=== PATIENT | female | born 1980 | race Caucasian/White ===

== ENCOUNTER 2022-04-28 11:43 | Outpatient (REF) | payer OTHER, SELFPAY ==
--- NOTE | ~2022-04-28 | XR_ITS ---
EXAMINATION: XR CHEST CLINICAL INFORMATION: Cough. COMPARISON: None TECHNIQUE: 2 views of the chest were obtained. FINDINGS: The lungs are well expanded. No focal consolidation. No pleural effusion. Cardiac silhouette is within normal limits. XR/XR chest 2V IMPRESSION: No acute abnormality.
== END 2022-04-28 11:44 | disposition home or self-care (01) ==
LOC: HO.HMGCX 11:43
DX: R05.9 Cough, unspecified (principal)
CPT/HCPCS: 71046

== ENCOUNTER → 2023-07-31 12:08 | Outpatient (BNVA) | payer OTHER, SELFPAY | PROVIDERS: Visit Provider Physician Assistant Medical | DX: S83.8X2A Sprain of other specified parts of left knee, initial encounter (principal); W00.0XXA Fall on same level due to ice and snow, initial encounter | CPT/HCPCS: 73564; 99203 ==

== ENCOUNTER → 2023-08-14 10:31 | Outpatient (BNVA) | payer OTHER, SELFPAY | PROVIDERS: Visit Provider Physician Assistant Medical | DX: S83.8X2D Sprain of other specified parts of left knee, subsequent encounter (principal); W00.0XXD Fall on same level due to ice and snow, subsequent encounter | CPT/HCPCS: 99213 ==

== ENCOUNTER 2023-08-23 19:55 | Outpatient (REF) | payer OTHER, SELFPAY ==
--- NOTE | ~2023-08-23 | MR_ITS ---
EXAMINATION: MR KNEE WITHOUT CONTRAST, LEFT CLINICAL INFORMATION: Left knee pain and swelling following injury on 07/25/2023. Twisting injury. Surgery in 2008. COMPARISON: Left knee radiographs dated 07/31/2023. TECHNIQUE: MRI of the knee without contrast was performed using routine sequences on a high-field scanner. FINDINGS: MENISCI: Medial Meniscus: Intact Lateral Meniscus: Intact LIGAMENTS: Cruciate: Intact Collateral: Mild edema along the periphery of the medial collateral ligament consistent with a grade 1 sprain/partial tear. Intact fibular collateral ligament. EXTENSOR MECHANISM: Intact quadriceps and patellar tendons. Normal patellofemoral alignment. ARTICULAR CARTILAGE/BONE: Patellofemoral Compartment: Full-thickness articular cartilage defect extending from the patellar median ridge into the lateral patellar facet measuring up to 1.6 x 1.8 cm (ML x CC). Underlying subchondral cystic change. Full-thickness articular cartilage defect at the superior aspect of the central trochlea measuring approximately 0.8 x 0.9 cm (ML x CC). Inferior medial trochlea full-thickness articular cartilage fissuring with underlying subchondral cystic change. Small marginal osteophytes. Medial Compartment: Full-thickness articular cartilage defect at the anterior weightbearing medial femoral condyle measuring 0.9 x 0.6 cm (AP x ML). Tiny marginal osteophytes. Lateral Compartment: Mild articular cartilage signal heterogeneity with tiny marginal osteophytes. JOINT FLUID AND BURSAE: Haxgs-vy-osuignzk joint effusion. MR/MR knee LT wo con IMPRESSION: 1. Grade 1 sprain/partial tear of the medial collateral ligament. 2. No meniscal tear. 3. Moderate patellofemoral as well as mild medial and lateral compartment osteoarthritis. Ygjik-ib-hqewlqqg joint effusion.
== END 2023-08-23 19:56 | disposition home or self-care (01) ==
LOC: HO.MRI 19:55
PROVIDERS: PCP Family Medicine; Visit Provider Internal Medicine
DX: S89.92XA Unspecified injury of left lower leg, initial encounter (principal); W50.2XXA Accidental twist by another person, initial encounter
CPT/HCPCS: 73721

== ENCOUNTER → 2023-09-04 11:14 | Outpatient (BNVA) | payer OTHER, SELFPAY | PROVIDERS: Visit Provider Physician Assistant Medical | DX: S83.412D Sprain of medial collateral ligament of left knee, subsequent encounter (principal); W00.0XXD Fall on same level due to ice and snow, subsequent encounter | CPT/HCPCS: 99213 ==

== ENCOUNTER 2023-09-05 13:00 | Outpatient (RCR) | payer OTHER, BC, SELFPAY ==
--- NOTE | 2023-08-04 14:49 | MHC.PT.EP ---
[facility] [place] Office [place] Office [place] Office [address] Shobha Thrasher [address] [phone] F: [phone] F: [phone] F: [phone] F: [phone] Physical Therapy Plan of Care Date of Evaluation: 08/04/23 Date of Surgery: n/a Diagnosis: unspecified superficial injury of L knee Assessment: Patient is a 43 year old female presenting to PT with complaints of pain in her L knee. Pt reports onset of pain began 07/25/2023 due to slipping on ice at work. She presents today with impairments in pain, knee ROM, knee strength, hip strength. 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 Pt expresses watermaster goal of returning to [employer], and is motivated to work towards this in PT. Clinical presentation today is most consistent with signs and sx associated with L knee pain and pt will benefit from skilled PT 2 week x 4 weeks to address the following problems and impairments noted upon evaluation: pain, knee ROM, knee strength, hip strength. These problems limit the patient with the following functional activities: ambulating, stair negotiation, work, ADLs. The prescribed treatment plan of care is medically necessary. Co-morbidities of hx B knee arthroscopy were identified and taken into considerations of plan of care. Pt was educated on HEP, role of PT, prognosis, POC. Frequency and Duration: The patient will be seen 2 x week x 4 weeks Short Term Goals: Pt will demonstrate improved L knee ROM equal B in 2 weeks. Pt will demonstrate improved hip MMT strength by 1/3 grade in 2 weeks for improved lumbopelvic stability. Pt will demonstrate improved knee MMT strength by 1/3 grade in 2 weeks. Fpc Goals: Pt will demonstrate improved LEFI score by 9 points in 4 weeks for functional mobility. Pt will demonstrate ability to ambulate with no AD and good mechanics with min to no pain in 4 weeks for improved ability to work. Pt will demonstrate ability to negotiate stairs with min to no pain in 4 weeks for improved access to her home. Treatment Plan: Modalities to reduce pain, spasms and effusion. Manual therapy to restore motion and function. Therapeutic exercise to improve strength and flexibility. Neuromuscular re-education for posture and balance. Therapeutic activities to return to functional activities of daily living. Electronically signed by: Lakia Grant PT, DPT, ATC Please sign and return to therapist. Thank you for your referral.
--- NOTE | 2023-10-06 06:52 | MHC.PT.DC ---
[facility] [place] Office [place] Office [place] Office [address] Thrasher [address] [phone] F: [phone] F: [phone] F: [phone] F: [phone] Physical Therapy Discharge Report Diagnosis: unspecified superficial injury of L knee Date of Surgery: n/a Date of Evaluation: 08/04/23 Date of Discharge: 10/06/23 Treatments to Date: 7 Cancellations to Date: 4 No Shows to Date: 0 Discharge Status: Discharge Summary: Pt has not returned to skilled PT in >30 days and therefore to be d/c per policy. Electronically signed by: Lakia Grant, PT, DPT, ATC Please sign and return to therapist. Thank you for your referral.
== END 2023-10-06 06:52 | disposition home or self-care (01) ==
LOC: HO.PTCHIC 13:00
PROVIDERS: Visit Provider Physician Assistant Medical
DX: S80.912A Unspecified superficial injury of left knee, initial encounter (principal)
CPT/HCPCS: 97110; 97161

== ENCOUNTER 2023-09-15 12:10 | Outpatient (AMB) | payer OTHER, SELFPAY ==
--- NOTE | 2023-09-15 12:12 | A.OFFVIS_ITS ---
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 Patient reports she was at work on 07/25/2023 and sustained a twisting injury to the left knee. She was seen at [facility] where an MRI was ordered showing a Grade I Meniscal Strain and Cartilage defect. Reports pain is mainly in anterior aspect of knee and tightness behind knee. 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 Patient reports she was at work on 07/25/2023 and sustained a twisting injury to the left knee. She was seen at [facility] where an MRI was ordered showing a Grade I Meniscal Strain and Cartilage defect. Reports pain is mainly in anterior aspect of knee and tightness behind knee. [facility] Medical History Post-COVID chronic dyspnea Social History (Updated 09/15/23 @ 12:17 by Krystal Mills [facility]) Current occupation: nurse/ rt hand Physical Exam Vital Signs: BMI result Body Mass Index 39.0 Const General: cooperative, healthy appearing, no acute distress, well developed and alert HEENT Head: Yes normal to inspection, Yes normocephalic and Yes atraumatic Mouth: moist mucous membranes Eyes General: appearance normal, both eyes and all related structures EOM: EOMs intact bilaterally Chest Other: no audible wheezing. Resp Other: No audible wheezing Effort & Inspection: normal respiratory effort Back/Spine/Pelvis Cervical Spine: normal cervical lordosis Skin General skin exam: no rashes or lesions noted Neuro General: no focal motor deficits Extrem Other: Left knee with no effusion and full ROM. There is mild TTP over the medial femoral MCL origen with no valgus instability at 0 or 30 deg. Psych Appearance: grossly normal and well kempt Mental Status: mental status grossly normal Speech and movement: Normal speech and movement present Affect: normal affect Attitude: cooperative Results Reviewed Results Reviewed: I personally reviewed the MR images. Grade 1 sprain/partial tear of the medial collateral ligament. 2. No meniscal tear. 3. Moderate patellofemoral as well as mild medial and lateral compartment osteoarthritis. Zodpy-ya-bigasqyd joint effusion. Assessment & Plan Assessment & Plan (1) Knee MCL sprain: Code(s): S83.419A - Sprain of medial collateral ligament of unspecified knee, initial encounter Plan: 3 yo F with a G1 MCL injury., She is improving and minimally symptomatic. Continue to avoid aggressive twisting/cutting but may work without restrictions and there is no acute intervention warranted. Coding Level of Care Code New Pt Level 3 (00434) Diagnoses Knee MCL sprain S83.419A
[2023-09-15 12:16] VITALS: BMI 39.0
== END 2023-09-15 12:30 | disposition home or self-care (01) ==
PROVIDERS: Visit Provider Orthopaedic Surgery
DX: S83.412A Sprain of medial collateral ligament of left knee, initial encounter (principal)
CPT/HCPCS: 99203

== ENCOUNTER → 2023-09-15 12:10 | Outpatient (BNVA) | payer OTHER, SELFPAY | PROVIDERS: Visit Provider Orthopaedic Surgery | DX: S83.412A Sprain of medial collateral ligament of left knee, initial encounter (principal) | CPT/HCPCS: 99202 ==